=== PATIENT | male | born 1955 | race Two or more races ===

== ENCOUNTER 2018-02-26 18:43 | Inpatient (IN) | END 2018-02-28 14:40 | disposition home or self-care (01) | DRG 280 | DX: I13.0 Hypertensive heart and chronic kidney disease with heart failure and stage 1 through stage 4 chronic kidney disease, or unspecified chronic kidney disease (principal); J96.01 Acute respiratory failure with hypoxia; I21.4 Non-ST elevation (NSTEMI) myocardial infarction; N17.0 Acute kidney failure with tubular necrosis; I50.33 Acute on chronic diastolic (congestive) heart failure; I16.1 Hypertensive emergency; Z68.41 Body mass index [BMI] 40.0-44.9, adult; N04.9 Nephrotic syndrome with unspecified morphologic changes; N18.9 Chronic kidney disease, unspecified; I25.10 Atherosclerotic heart disease of native coronary artery without angina pectoris; E11.22 Type 2 diabetes mellitus with diabetic chronic kidney disease; E78.5 Hyperlipidemia, unspecified; E66.01 Morbid (severe) obesity due to excess calories; G47.33 Obstructive sleep apnea (adult) (pediatric); D63.8 Anemia in other chronic diseases classified elsewhere; E83.51 Hypocalcemia; Z98.61 Coronary angioplasty status ==

== ENCOUNTER 2020-05-13 16:42 | Emergency (ER) | payer MEDICAID ==
[~2020-05-13] VITALS: Ht 175.3 cm; Wt 117.5 kg
[~2020-05-13 16:42] MED LIST: ASPI81TA44 PO; ATOR80TA PO; CARV25TA2 PO; CLOP75TA15 PO; GLYB2.5T4 PO; HYDR20VI4 PO; ISOS20TA8 PO; METO2.5T7 PO; NIFE60TA72 PO
--- NOTE | 2020-05-13 16:52 | NUR ---
FANNIE TO ER BED 7. AAOX4. NOT IN RESP DISTRESS. BROUGHT IN FOR LOWER BACK PAIN. PER PT, HIS PAIN HAS BEEN GOING ON FOPR THE PAST YEAR AND ITS WORST TODAY. PT REPORTS DIFFICULTY WALKING BECASUE OF THE PAIN. PT HAS ONLY BEEN TAKING TYLENOL WITH HAS NOT RELIEVED THE PAIN. AWAITING MD FOR EVAL.
[2020-05-13] MEDS ORDERED: DEXAMETHASONE SOD PHOSPHATE 10 MG/ML VIAL IM ONE (17:00)
[2020-05-13] MEDS ORDERED: KETOROLAC TROMETHAMINE INJ 60 MG/2 ML VIAL IM ONE (17:00)
[2020-05-13] MEDS ORDERED: HYDROCODONE/APAP 5/325MG TABLET PO ONE (17:00)
[2020-05-13] MEDS ORDERED: HYDROCODONE/APAP 5/325MG TABLET ONE (17:05)
[2020-05-13] MEDS ORDERED: DEXAMETHASONE SOD PHOSPHATE 10 MG/ML VIAL ONE (17:05)
[2020-05-13] MEDS ORDERED: KETOROLAC TROMETHAMINE INJ 30 MG/ML VIAL ONE (17:05)
[2020-05-13] MEDS ORDERED: HYDR-4209 PO (18:10)
--- NOTE | 2020-05-13 18:32 | NUR ---
Patient discharged to home in stable condition. Written and verbal after care instructions given. Patient verbalizes understanding of instruction. Pt ambulatory with a steady gait w/ an aide of his front wheeled walker. Pt was assisted top waiting room on a wheelchair.
[2020-05-13 18:33] VITALS: BP 134/72
== END 2020-05-13 18:32 | disposition home or self-care (01) ==
LOC: ER 16:50
DX: M54.5 Low back pain (principal); G89.29 Other chronic pain; I25.10 Atherosclerotic heart disease of native coronary artery without angina pectoris; I12.0 Hypertensive chronic kidney disease with stage 5 chronic kidney disease or end stage renal disease; E11.22 Type 2 diabetes mellitus with diabetic chronic kidney disease; N18.6 End stage renal disease; Z99.2 Dependence on renal dialysis; Z98.890 Other specified postprocedural states; Z79.899 Other long term (current) drug therapy; Z79.82 Long term (current) use of aspirin
CPT/HCPCS: 96372 ×2; 99284; J1100; J1885

== ENCOUNTER 2021-12-25 16:39 | Emergency (ER) | payer MEDICAID, OTHER ==
[~2021-12-25] VITALS: Ht 175.3 cm; Wt 106.6 kg
[~2021-12-25 16:39] MED LIST changes: +HYDR-4209 PO
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
[2021-12-25] MEDS ORDERED: ACETAMINOPHEN 325 MG TABLET PO ONE (18:00)
[2021-12-25] MEDS ORDERED: ACETAMINOPHEN ES 500 MG TABLET ONE (18:17)
[2021-12-25 20:48] VITALS: BP 140/70
--- NOTE | 2021-12-25 20:48 | NUR ---
Patient discharged to home in stable condition. Written and verbal after care instructions given. Patient verbalizes understanding of instruction.
== END 2021-12-25 20:49 | disposition home or self-care (01) ==
LOC: ER 16:41
DX: S16.1XXA Strain of muscle, fascia and tendon at neck level, initial encounter (principal); E11.22 Type 2 diabetes mellitus with diabetic chronic kidney disease; I12.0 Hypertensive chronic kidney disease with stage 5 chronic kidney disease or end stage renal disease; N18.6 End stage renal disease; G89.29 Other chronic pain; Z79.899 Other long term (current) drug therapy; V39 Occupant of three-wheeled motor vehicle injured in other and unspecified transport accidents; Y93.89 Activity, other specified; Y92.89 Other specified places as the place of occurrence of the external cause; Y99.8 Other external cause status
CPT/HCPCS: 99284; 72125; L0172